=== PATIENT | female | born 1985 | race African-American/Black ===

== ENCOUNTER → 2018-01-17 | Outpatient (CLI) | payer OTHER | LOC: COL.PUL 10:49 | DX: R06.02 Shortness of breath (principal) | CPT/HCPCS: J7674 ==

== ENCOUNTER → 2018-02-10 | Outpatient (CLI) | payer OTHER | LOC: COL.VAS 09:05 | DX: R06.02 Shortness of breath (principal) ==

== ENCOUNTER → 2018-03-03 | Outpatient (CLI) | payer OTHER | LOC: COL.RAD 16:23 | DX: M54.2 Cervicalgia (principal); V87.7XXA Person injured in collision between other specified motor vehicles (traffic), initial encounter ==

== ENCOUNTER 2018-09-22 14:58 | Outpatient (RCR) | payer OTHER | END 2018-12-21 | LOC: MKS.ESL.PT | DX: M54.2 Cervicalgia (principal); R51 Headache; G89.29 Other chronic pain ==

== ENCOUNTER → 2019-07-24 | Outpatient (CLI) | payer OTHER | LOC: MHCPAIN 07:49 | DX: M79.2 Neuralgia and neuritis, unspecified (principal); M53.3 Sacrococcygeal disorders, not elsewhere classified | CPT/HCPCS: G0463 ==

== ENCOUNTER → 2019-07-25 | Outpatient (CLI) | payer OTHER | LOC: MHCPAIN 14:00 | DX: M25.551 Pain in right hip (principal) | CPT/HCPCS: J1040 ==